=== PATIENT | male | born 1985 | race African-American/Black ===

== ENCOUNTER 2023-05-29 20:53 | Emergency (ER) | payer OTHER ==
[~2023-05-29] VITALS: Ht 180 cm; Wt 113.0 kg
--- NOTE | 2023-05-29 21:10 | ED General ---
General Chief Complaint: Medical clearance from police Stated Complaint: NEEDS MEDICALLY CLEARED Source of Information: Patient, Police History of Present Illness Date Seen by Provider: May 29, 2023 Time Seen by Provider: 21:07 Initial Comments 37-year-old male is brought by police secondary to medical clearance. Police are concerned because the patient has a midline catheter in his right arm for IV antibiotics for which he is giving himself treatment for a UTI and bacteremia. Patient reports he has 4 doses left he believes. Police wanted the patient cleared since he has the catheter in his arm. Allergies and Home Medications Patient Home Medication List Home Medication List Reviewed: Yes Review of Systems Review of Systems Constitutional: see HPI (All other systems negative except as documented in HPI.) Physical Exam Vital Signs Capillary Refill : Height, Weight, BMI Height: '" Weight: lbs. oz. kg; BMI Method: General Appearance: No Apparent Distress, WD/WN Eyes: Bilateral Eye Normal Inspection, Bilateral Eye PERRL, Bilateral Eye EOMI HEENT: PERRL/EOMI, TMs Normal, Normal ENT Inspection, Pharynx Normal Neck: Full Range of Motion, Normal Inspection, Non Tender, Supple, Carotid Bruit Respiratory: Chest Non Tender, Lungs Clear, Normal Breath Sounds, No Accessory Muscle Use, No Respiratory Distress Cardiovascular: Regular Rate, Rhythm, No Edema, No Gallop, No JVD, No Murmur, Normal Peripheral Pulses Gastrointestinal: Normal Bowel Sounds, No Organomegaly, No Pulsatile Mass, Non Tender, Soft Back: Normal Inspection, No CVA Tenderness, No Vertebral Tenderness Extremity: Normal Capillary Refill, Normal Range of Motion, Non Tender, No Calf Tenderness, No Pedal Edema, Other (IV catheter in right arm) Neurologic/Psychiatric: Alert, Oriented x3, No Motor/Sensory Deficits, Normal Mood/Affect Skin: Normal Color, Warm/Dry Lymphatic: No Adenopathy Progress/Results/Core Measures Suspected Sepsis SIRS Temperature: Pulse: Respiratory Rate: Blood Pressure / Mean: Results/Orders Vital Signs/I&O Capillary Refill : Progress Note : Time: 21:08 Progress Note Patient evaluated and shows no signs of distress at this time. From a medical standpoint I see no reason why he cannot be placed in fpc with a midline in place. Departure Impression Primary Impression: Medical clearance for incarceration Disposition: 21 /X[address]/[employer] Condition: Stable Departure-Patient Inst. Decision time for Depature: 21:10 Patient Instructions: Midline IV Catheter (DC), NO INSTRUCTIONS GIVEN ADELE DELEON DO May 29, 2023 21:10
== END 2023-05-29 21:25 ==
LOC: ER FS 20:55
DX: Y99.8 Other external cause status
CPT/HCPCS: 99282